=== PATIENT | female | born 1955 | race Asian ===

== ENCOUNTER → 2016-05-25 | Outpatient (CLI) | payer OTHER | END | disposition home or self-care (01) | LOC: EMPHLTH 15:10 | PROVIDERS: ATTEND Internal Medicine | DX: R76.11 Nonspecific reaction to tuberculin skin test without active tuberculosis (principal) ==

== ENCOUNTER 2017-07-27 18:07 | Emergency (ER) | payer OTHER ==
[~2017-07-27] VITALS: Ht 154.9 cm; Wt 57.7 kg
[2017-07-27 18:18] LABS: GLUCOSE,POINT OF CARE 139 MG/DL (70-110)
[2017-07-27] MEDS ORDERED: AMLO-511 PO (18:22)
[2017-07-27] MEDS ORDERED: TELM40 PO (18:22)
[2017-07-27] MEDS ORDERED: ROSU10 PO (18:22)
[2017-07-27] MEDS ORDERED: METF500T6 PO (18:22)
[2017-07-27] MEDS ORDERED: PERTUSS(ACELL),DIPH,TET VAC/PF 0.5 ML VIAL IM ONE (19:00)
[2017-07-27 19:27] VITALS: BP 144/86
== END 2017-07-27 19:27 | disposition home or self-care (01) ==
LOC: EMS 18:08
DX: S61.232A Puncture wound without foreign body of right middle finger without damage to nail, initial encounter (principal); I10 Essential (primary) hypertension; E11.9 Type 2 diabetes mellitus without complications; E78.00 Pure hypercholesterolemia, unspecified; Z88.8 Allergy status to other drugs, medicaments and biological substances; Z91.041 Radiographic dye allergy status; Z79.4 Long term (current) use of insulin; W46.1XXA Contact with contaminated hypodermic needle, initial encounter; Y93.89 Activity, other specified; Y92.89 Other specified places as the place of occurrence of the external cause; Y99.8 Other external cause status
CPT/HCPCS: 84460; 86706; 86803; 87340; 90471; 90715; 99284